=== PATIENT | female | born 1995 | race American Indian/Alaskan Native ===

== ENCOUNTER 2021-06-20 10:01 | Emergency (ER) | payer BC ==
[2021-06-20 11:30] VITALS: BP 149/98
--- NOTE | 2021-06-20 13:28 | Emergency Department Report ---
ED Female HPI - General Chief complaint: Urogenital-Female Stated complaint: HEMORRHOIDS Time Seen by Provider: 06/20/21 13:22 Source: patient Mode of arrival: Ambulatory Limitations: No Limitations - History of Present Illness Initial comments: 26-year-old -[place] female presents to the emergency room reporting that she was seen yesterday urgent care and was diagnosed with a hemorrhoid given medication. Patient denies any pain. But comes in stating that the medicine is not working. Patient has only used the medicine for 24 hours. She denies any bleeding or pain at this time. Patient reports she is just anxious about having a bowel movement. Onset/Timin -: days(s) Severity scale (0 -10): 0 Improves with: none Worsens with: none Are you Now?: No - Related Data Allergies Allergy/AdvReac Type Severity Reaction Status Date / Time No Known Allergies Allergy Unverified 06/20/21 11:26 ED Review of Systems ROS: Stated complaint: HEMORRHOIDS Other details as noted in HPI Comment: All other systems reviewed and negative ED Past Medical Hx - Past Medical History Previous Medical History?: No - Surgical History Past Surgical History?: No ED Physical Exam - General Limitations: No Limitations General appearance: alert, in no apparent distress - Head Head exam: Present: atraumatic, normocephalic - Eye Eye exam: Present: normal appearance - ENT ENT exam: Present: mucous membranes moist - Respiratory Respiratory exam: Absent: accessory muscle use - Cardiovascular Cardiovascular Exam: Present: regular rate, normal rhythm. Absent: systolic murmur, diastolic murmur, rubs, gallop - Rectal Rectal exam: Present: hemorrhoids. Absent: tenderness - Extremities Exam Extremities exam: Present: normal inspection - Back Exam Back exam: Present: normal inspection - Neurological Exam Neurological exam: Present: alert, oriented X3, normal gait - Psychiatric Psychiatric exam: Present: normal affect, normal mood ED Course Vital Signs 06/20/21 11:29 Temperature 98.3 F Pulse Rate 78 Respiratory 18 Rate Blood Pressure 149/98 [Right] O2 Sat by Pulse 98 Oximetry ED Medical Decision Making - Medical Decision Making 26-year-old -[place] female presents to the emergency room reporting that she was seen yesterday urgent care and was diagnosed with a hemorrhoid given medication. Patient denies any pain. But comes in stating that the medicine is not working. Patient has only used the medicine for 24 hours. She denies any bleeding or pain at this time. Patient reports she is just anxious about having a bowel movement. Discussed with patient to continue with the hydrocortisone 2.5. Continue with the naproxen as needed. Follow-up with a colorectal specialist I have referred her to. Critical care attestation.: If time is entered above; I have spent that time in minutes in the direct care of this critically ill patient, excluding procedure time. ED Disposition Clinical Impression: Hemorrhoidal skin tags Disposition: TO HOME OR SELFCARE Is pt being admited?: No Does the pt Need Aspirin: No Condition: Stable Instructions: Hemorrhoids, [id number] Additional Instructions: Please continue with the hydrocortisone cream. Keep your diet with high-fiber food. Be sure to drink at least 2 to 3 L of water daily. And follow-up with a colorectal specialist I have listed 1 below for your convenience. Take pain medication as needed Referrals: [facility] [Provider Group] - 3-5 Days Forms: Work/School Release Form(ED) Time of Disposition: 14:13
== END 2021-06-20 14:30 | disposition home or self-care (01) ==
LOC: ED 10:01
DX: K64.4 Residual hemorrhoidal skin tags (principal)
CPT/HCPCS: 99281